=== PATIENT | male | born 1950 | race Caucasian/White ===

== ENCOUNTER 2016-12-01 07:30 | Emergency (ER) | payer OTHER ==
[2016-12-01 09:01] LABS: Basophils % (Auto) 0.2 % (0.0-1.8); Eosinophils % (Auto) 1.1 % (0.0-4.3); Hemoglobin 17.6 gm/dl (11.8-15.2); Mean Corpuscular HGB Conc 35 % (32-34); Mean Corpuscular Hemoglobin 32 pg (28-32); Mean Corpuscular Volume 92 fl (84-94); Platelet Count 214 K/mm3 (140-440); Red Blood Count 5.55 M/mm3 (3.65-5.03); White Blood Count 8.9 K/mm3 (4.5-11.0)
[2016-12-01 09:12] LABS: Anion Gap 22 mmol/L; BUN/Creatinine Ratio 28.75; Blood Urea Nitrogen 23 mg/dL (9-20); Calcium 9.3 mg/dL (8.4-10.2); Carbon Dioxide 22 mmol/L (22-30); Chloride 95.3 mmol/L (98-107); Glucose 188 mg/dL (75-100); Potassium 4.3 mmol/L (3.6-5.0); Sodium 135 mmol/L (137-145)
[2016-12-01] MEDS ORDERED: ZOFRAN ODT PO/SL ONE (10:26)
--- NOTE | 2016-12-01 10:43 | Emergency Department Report ---
HPI - General Chief Complaint: Dizziness Time Seen by Provider: 12/01/16 10:14 - HPI HPI: 66-year-old male presents today with right earache 3 days also complaining of dizziness, nausea, neck tension since this morning. Patient states that he has a mild headache that gradually started and he feels as it extending from his neck. Denies cough or cold symptoms. Patient states that he has history of hypertension and this morning his blood pressure was 171/109. Patient is currently on amlodipine 10 mg by mouth daily and his last dose was at 5 AM this morning. Patient ate garlic this morning to decrease his blood pressure and is now complaining of burning sensation in chest and burping. Positive for history of reflux. Denies fever, chills, chest pain, shortness of breath, abdominal pain. ED Past Medical Hx - Past Medical History Hx Hypertension: Yes - Surgical History Additional Surgical History: Gallbladder - Social History Smoking Status: Never Smoker Substance Use Type: Alcohol - Medications Home Medications: Home Medications Medication Instructions Recorded Confirmed Last Taken Type Carbamide Peroxide [Ear Wax 3 - 5 drops OT BID #1 bottle 12/01/16 Unknown Rx Removal] Finasteride 12/01/16 Unknown History Omeprazole 12/01/16 Unknown History Ondansetron [Zofran Odt] 4 mg PO TID #20 tab.rapdis 12/01/16 Unknown Rx Ranitidine HCl 12/01/16 Unknown History Tamsulosin 12/01/16 Unknown History ED Review of Systems ROS: Stated complaint: HIGH BP Other details as noted in HPI Constitutional: denies: chills, fever, malaise Eyes: denies: eye pain ENT: ear pain. denies: throat pain, congestion Respiratory: denies: cough, shortness of breath, wheezing Cardiovascular: denies: chest pain, palpitations Endocrine: no symptoms reported Gastrointestinal: nausea. denies: abdominal pain, vomiting Neurological: headache. denies: weakness Physical Exam - Physical Exam Vital Signs: Vital Signs 12/01/16 07:36 Temperature 98.0 F Pulse Rate 101 H Respiratory 22 Rate Blood Pressure 164/108 O2 Sat by Pulse 98 Oximetry Physical Exam: GENERAL: The patient is well-developed and well-nourished. Patient is in NAD. HEAD: Normocephalic. Atraumatic. EYES: PERRL. EARS: Positive for right-sided cerumen impaction. Left sided external auditory canal and tympanic membrane clear. NOSE: Normal nasal mucosa with no nasal discharge. THROAT: No erythema, swelling or exudates. NECK: No midline tenderness. Positive for bilateral paraspinal tenderness or cervical region. Full range of motion. CHEST/LUNGS: Clear to auscultation throughout. HEART/CARDIOVASCULAR: Regular rate and rhythm. ABDOMEN: Left upper quadrant tenderness to palpation. Bowel sounds normoactive. No guarding or rebound tenderness. EXTREMITIES: Peripheral pulses intact. Capillary refill less than 2 seconds. NEURO: Alert and oriented 3, normal gait, fluid speech, EOMs intact, normal facial sensation, strength exam 5/5 upper and lower extremities, GCS equals 15 ED Course Vital Signs 12/01/16 07:36 Temperature 98.0 F Pulse Rate 101 H Respiratory 22 Rate Blood Pressure 164/108 O2 Sat by Pulse 98 Oximetry ED Medical Decision Making - Lab Data Result diagrams: 12/01/16 08:19 12/01/16 08:19 - Radiology Data Radiology results: report reviewed CT head: The skull base and calvarium are intact. The partially visualized paranasal sinuses, mastoid air cells and middle ears are clear. Brain volume is age appropriate. There is no advanced microvascular ischemic change or suspected demyelinating disease. There is no infection, intraoral or extra- axial hemorrhage. - Medical Decision Making 36-year-old male presents today with right ear cerumen impaction, headache and dizziness with elevated blood pressure level. Discussed his lab results and EKG with Dr. Webb. Dr. Webb recommended a head CT. His head CT is within normal limits. Patient is in no acute distress at this time. He will be discharged home and is encouraged to follow up with a primary care provider. He will be sent home on antibiotics and Zofran and is encouraged to return to the emergency room for any worsening symptoms. Critical care attestation.: If time is entered above; I have spent that time in minutes in the direct care of this critically ill patient, excluding procedure time. ED Disposition Clinical Impression: Dizziness Cerumen impaction Qualifiers: Laterality: right Qualified Code(s): H61.21 - Impacted cerumen, right ear Headache Qualifiers: Headache type: unspecified Headache chronicity pattern: acute headache Intractability: not intractable Qualified Code(s): R51 - Headache HTN (hypertension) Qualifiers: Hypertension type: essential hypertension Qualified Code(s): I10 - Essential ( primary) hypertension Disposition: DISCHARGED TO HOME OR SELFCARE Is pt being admited?: No Does the pt Need Aspirin: No Condition: Stable Instructions: Hypertension (ED), Cerumen Impaction (ED), Acute Headache (ED) Additional Instructions: Follow-up with primary care provider. Return to the emergency department if symptoms worsen. Prescriptions: Carbamide Peroxide [Ear Wax Removal] 3 - 5 drops OT BID #1 bottle Ondansetron [Zofran Odt] 4 mg PO TID #20 tab.rapdis Referrals: PRIMARY CARE, [Primary Care Provider] - 3-5 Days Forms: Work/School Release Form(ED), Accompanied Note Time of Disposition: 15:51
[2016-12-01 11:20] LABS: Creatine Kinase MB 3.1 ng/mL (0.0-4.0)
[2016-12-01 11:22] LABS: Creatine Kinase 262 units/L (55-170)
[2016-12-01 11:26] LABS: Alanine Aminotransferase 45 units/L (7-56); Albumin 4.5 g/dL (3.9-5); Albumin/Globulin Ratio 1.4 %; Alkaline Phosphatase 171 units/L (35-129); Bilirubin,Total 0.6 mg/dL (0.1-1.2); Lipase 34 units/L (13-60); Total Protein 7.8 g/dL (6.3-8.2)
[2016-12-01 11:27] LABS: Bilirubin,Urine NEG (Negative); Blood,Urine NEG (Negative); Ketones,Urine NEG (Negative); Leukocyte Esterase,Urine NEG (Negative); Nitrite,Urine NEG (Negative); Protein,Urine <15 mg/dL mg/dL (Negative); RBC,Urine < 1.0 /HPF (0.0-6.0); Urobilinogen,Urine < 2.0 mg/dL (<2.0)
[2016-12-01 11:31] LABS: Bilirubin,Direct < 0.2 mg/dL (0-0.2)
--- NOTE | 2016-12-01 15:42 | Cat Scan Report ---
FINAL REPORT PROCEDURE: CT HEAD/BRAIN WO CON TECHNIQUE: Computerized tomography of the head was performed without contrast material. HISTORY: headache, dizziness with high bp COMPARISON: None FINDINGS: The skull base and calvarium are intact. The partially visualized paranasal sinuses, mastoid air cells and middle ears are clear. Brain volume is age appropriate. There is no advanced microvascular ischemic change or suspected demyelinating disease. There is no infarction, intra or extra-axial hemorrhage. IMPRESSION: No CT evident intracranial abnormality.
[2016-12-01 16:08] VITALS: BP 153/90
== END 2016-12-01 16:13 | disposition home or self-care (01) ==
LOC: ED 07:30
DX: H61.21 Impacted cerumen, right ear (principal); I10 Essential (primary) hypertension; R42 Dizziness and giddiness; R51 Headache
CPT/HCPCS: 36415; 70450; 80048; 80074; 81001; 82150; 82550; 82553; 83690; 84484; 85025; 93005; 93010; 99284; Q0162